=== PATIENT | female | born 1985 | race Caucasian/White ===

== ENCOUNTER → 2024-05-12 08:44 | Outpatient (REF) | payer OTHER, SELFPAY | LOC: WDC 08:44 | PROVIDERS: ATTENDING PHYSICIAN Advanced Practice Midwife; FAMILY PHYSICIAN Family Medicine | DX: Z12.39 Encounter for other screening for malignant neoplasm of breast (principal); Z12.31 Encounter for screening mammogram for malignant neoplasm of breast | CPT/HCPCS: 76641 ==

== ENCOUNTER → 2025-01-13 13:56 | Outpatient (REF) | payer OTHER, SELFPAY | LOC: WDC 13:56 | PROVIDERS: ATTENDING PHYSICIAN Advanced Practice Midwife | DX: R92.8 Other abnormal and inconclusive findings on diagnostic imaging of breast (principal) | CPT/HCPCS: 76642 ==